=== PATIENT | female | born 1975 | race Caucasian/White ===

== ENCOUNTER 2016-06-08 19:19 | Emergency (ER) | payer OTHER ==
[~2016-06-08] VITALS: Ht 170.2 cm; Wt 81.6 kg
--- NOTE | 2016-06-08 20:40 | RADIOLOGY REPORT ---
EXAMINATION: XR WRIST, RIGHT CLINICAL INFORMATION: Fall. Swelling. Fracture. COMPARISON: None TECHNIQUE: AP, lateral, and oblique views of the right wrist. FINDINGS: There is an oblique transverse fracture through the metaphysis of the distal radius. There is also a linear sagittal fracture extending across the transverse fracture line from the distal diaphysis into the radial metaphysis. There may be a fracture line extending to the radial articular surface distally as well. The ulnar styloid process is avulsed. The carpal bones remain articulated and in alignment with the distal radius. Soft tissue swelling is noted. There is no abnormal angulation at the fracture site. IMPRESSION: Complex fractures through the distal radius with suspected radiocarpal intra-articular extension of one of the fracture lines. No significant angulation. Regional soft tissue swelling. Ulnar styloid avulsion fracture.
--- NOTE | 2016-06-08 20:59 | ED HAND/WRIST INJURY COMPLAINT ---
History of Present Illness General Chief Complaint: Fall Stated Complaint: S/P FALL RT WRIST AD ARM PAIN Source: patient, old records Exam Limitations: no limitations Vital Signs & Intake/Output Vital Signs & Intake/Output Vital Signs Date Time Temp Pulse Resp B/P Pulse O2 O2 Flow FiO2 Ox Delivery Rate 06/08 2132 98.3 105 18 132/80 100 Room Air 06/08 193 98.3 100 18 127/79 99 Room Air ED Intake and Output 06/09 0000 06/08 1200 Intake Total Output Total Balance Patient 180 lb Weight Allergies Coded Allergies: diphenhydramine (From BENADRYL) (Severe, 06/08/16) Reconcile Medications Oxycodone HCl/Acetaminophen (Percocet 5-325 MG Tablet) 5 MG-325 MG TABLET 1 TAB PO BID PRN pain Triage Note: PT TO ED FOR R WRIST PAIN AFTER SLIPPING DOWN THREE STAIRS, DID NOT HIT HEAD, R WRIST SWOLLEN, +SENSATION, PULSES, ABLE TO MOVE FINGERS, SPLINTED IN TRIAGE AND MEDICATED WITH 600 MG MOTRIN. Triage Nurses Notes Reviewed? yes Occurred: just prior to arrival Duration: hour(s): (1), constant Timing: recent history Injury Environment: home Severity: moderate, severe Severity Numbers: 10 Pain/Injury Location: Right: Wrist. Context: fall Method of Injury: fall Modifying Factors: Improves With: rest. Worsens With: movement. Associated Symptoms: swelling : No Patient currently breastfeeds: No HPI: 41-year-old female presents to the emergency room for evaluation after she had a mechanical fall down 3 stairs when she fell sustaining injury to her right wrist. She is right-hand dominant she now presents complaining of 10 out of 10 and aching throbbing pain non-radiating to the right wrist worse with range of motion. She denies any numbness or tingling. She denies any elbow shoulder pain she did not hit her head there is no loss of consciousness. She denies any neck or back pain there was no other injury she denies any chest abdominal left arm or lower extremity injury. She has not taken anything for symptoms however she was medicated with Motrin in triage (ANGEL PISANO) Past History Travel History Traveled to [place] past 21 day No Medical History Any Pertinent Medical History? none Neurological: NONE EENT: NONE Cardiovascular: NONE Respiratory: NONE Gastrointestinal: NONE Hepatic: NONE Renal: NONE Musculoskeletal: NONE Psychiatric: NONE Endocrine: NONE Blood Disorders: NONE Cancer(s): NONE GUEST EXPERIENCE REPRESENTATIVE/Reproductive: NONE Surgical History Surgical History: none Psychosocial History What is your primary language [place] Tobacco Use: Current Daily Use Daily Tobacco Use Amount/Type: => 5 Cigarettes daily ETOH Use: occasional use Illicit Drug Use: denies illicit drug use Family History Hx Contributory? No (ANGEL PISANO) Review of Systems Review of Systems Constitutional: Reports: see HPI. All Other Systems: Reviewed and Negative Comments Review of systems: See HPI, All other systems negative. Constitutional, no chills no fever, no malaise HEENT: no sore throat no congestion, no ear pain Cardiovascular: No chest pain , no palpitation , Skin, no rashes, no change in skin Respiratory: No dyspnea no cough no sputum GI: No nausea no vomiting, no diarrhea, : No dysuria Muscle skeletal: joint pain, no joint swelling, no back pain, no neck pain, Neurologic: No numbness no headache Psych: No stress Heme/endocrine: No bruising no bleeding Immunology: No lymphadenopathy (ANGEL PISANO) Physical Exam Physical Exam General Appearance: well developed/nourished, alert, awake Hand Left: normal inspection, normal range of motion Hand Right: swelling, tender Comments: Well-developed well-nourished patient in no apparent distress. HEENT: Atraumatic, extraocular motion intact Neck: Supple, FROM Back: FROM Cardiovascular: Regular rate and rhythms no murmurs rubs or gallops, Respiratory: No respiratory distress. Patient speaking in full complete sentences. Breath sounds clear to auscultation bilaterally: NO W/R/R Shoulder: Atraumatic/Stable. FROM . Elbow: Atraumatic/stable. FROM. No laxity Upper arm/Forearm: Atraumatic. Nontender. No edema, 5 out of 5 phone counselor strength noted to bilateral upper extremities Hand/Wrist: Wrist with tenderness swelling and no ecchymosis no deformity about the distal radius region. Range of motion is severely limited due to pain. The fingers and hand are neurovascularly intact with sensation and motor grossly intact. There is no specific carpal or metacarpal or phalangeal tenderness. Skin is intact. Tendon function of the hand is normal. No elbow or shoulder tenderness, range of motion is full. Pulses: Normal/equal radial pulses bilaterally. Brisk cap refill Lower Extremities: full range of motion Neuro: Alert and oriented x3 Skin: Warm & dry;No appreciable rash on exposed skin Psych: Mood affect normal, normal memory normal judgment. (ANGEL PISANO) Progress Differential Diagnosis: contusion, compartment syndrome, dislocation, fracture, sprain Plan of Care: Orders Procedure Date/time Status Durable Medical Equipment 06/08 2107 Active X-ray was ordered from triage patient is medicated with Percocet after the patient reported no improvement and Motrin which was given in triage X-ray was reviewed and discussed with Dr. SOTO- ADVISED SPLINT, F/U IN OFFICE. sugar tong split was applied to the right upper extremity. Discussed the patient at length her x-ray results and need for close follow-up with orthopedist tomorrow. Advised return anytime sooner if she develops numbness tingling or any other concerns. She feels comfortable with plan answered all her questions cleared for discharge (ANGEL PISANO) Diagnostic Imaging: Viewed by Me: Radiology Read. Discussed w/RAD: Radiology Read. Radiology Impression: PATIENT: MAXX GERARD PRESENT AGE: 41 PATIENT ACCOUNT NO: [id number] : 75 LOCATION: [facility] ORDERING PHYSICIAN: ROMA MENON DO SERVICE DATE: 06/08/16 EXAM TYPE: RAD - XRY-WRIST COMPLETE-RIGHT EXAMINATION: XR WRIST, RIGHT CLINICAL INFORMATION: Fall. Swelling. Fracture. COMPARISON: None TECHNIQUE: AP, lateral, and oblique views of the right wrist. FINDINGS: There is an oblique transverse fracture through the metaphysis of the distal radius. There is also a linear sagittal fracture extending across the transverse fracture line from the distal diaphysis into the radial metaphysis. There may be a fracture line extending to the radial articular surface distally as well. The ulnar styloid process is avulsed. The carpal bones remain articulated and in alignment with the distal radius. Soft tissue swelling is noted. There is no abnormal angulation at the fracture site. IMPRESSION: Complex fractures through the distal radius with suspected radiocarpal intra-articular extension of one of the fracture lines. No significant angulation. Regional soft tissue swelling. Ulnar styloid avulsion fracture. DICTATED BY: TROY JOHNSON MD DATE/TIME DICTATED:06/08/162034 HUMAN FACTORS ERGONOMIST:RAD.[email or web address] DATE/TIME TRANSCRIBED:06/08/162034 CONFIDENTIAL, DO NOT COPY WITHOUT APPROPRIATE AUTHORIZATION. <Electronically signed in Other Vendor System> SIGNED BY: TROY JOHNSON MD 06/08/162039 (ANGEL PISANO) Departure Departure Time of Disposition: 2104 Disposition: HOME OR SELF CARE Condition: Stable Clinical Impression Primary Impression: Distal radius fracture Referrals: PATIENT HAS NO PRIMARY CARE DR (PCP/Family) NADIA GRIFFITHS,DIOR Soto Additional Instructions: follow up with orthopedist dr soto tomorrow. rest, ice, keep splint in place at all times until seen by orthopedist. Return anytime sooner with worsening pain numbness tingling or any other concerns. Percocet for breakthrough pain and this was sent to your pharmacy Departure Forms: Customer Survey General Discharge Information Prescriptions: Current Visit Scripts Oxycodone HCl/Acetaminophen (Percocet 5-325 MG Tablet) 1 TAB PO BID PRN pain #15 TAB (ANGEL PISANO) PA/STABILIZER OPERATOR Co-Sign Statement Statement: ED Attending supervision documentation- [] I saw and evaluated the patient. I have also reviewed all the pertinent lab results and diagnostic results. I agree with the findings and the plan of care as documented in the PA's/STABILIZER OPERATOR's documentation. [X] I have reviewed the ED Record and agree with the PA's/STABILIZER OPERATOR's documentation. [] Additions or exceptions (if any) to the PAs/STABILIZER OPERATOR's note and plan are summarized below: [] (WILLIAM GRIFFITHS,TROY Malhotra) Procedures Splinting Location: RUE Manual Alignment Performed: No Hand-Made Type: orthoglass Splint: sugar-tong Splint Applied By: splint applied by me Pre-Proc Neuro Vasc Exam: normal Post-Proc Neuro Vasc Exam: normal (ANGEL PISANO)
[2016-06-08] MEDS ORDERED: PERCOCET 5-3251 EACH PO (21:21)
[2016-06-08 21:33] VITALS: BP 132/80
== END 2016-06-08 21:34 ==
LOC: ERH 19:19
DX: S52.501A Unspecified fracture of the lower end of right radius, initial encounter for closed fracture (principal); W10.9XXA Fall (on) (from) unspecified stairs and steps, initial encounter
CPT/HCPCS: 73110-RT